=== PATIENT | female | born 1955 | race Caucasian/White ===

== ENCOUNTER 2024-01-31 08:30 | Outpatient (CLI) | payer MEDICARE | END 2024-01-31 08:31 | disposition home or self-care (01) | LOC: CT 08:30 | PROVIDERS: ATTEND Orthopaedic Surgery | DX: M17.11 Unilateral primary osteoarthritis, right knee (principal) ==

== ENCOUNTER 2024-02-10 06:42 | Observation (INO) | payer MEDICARE ==
[2024-02-05 11:14] VITALS: BMI 41.0
[2024-02-10] MEDS ORDERED: Vancomycin (BATCH) 2 GM in Premix 1 BAG IVPB SCH (07:15)
[2024-02-10] MEDS ORDERED: Sodium Chloride 0.9% 100 ML ONE ×2 (08:07→09:35)
[2024-02-10] MEDS ORDERED: Tranexamic Acid 1,000 MG/10 ML VIAL ONE ×2 (08:07→12:05)
[2024-02-10] MEDS ORDERED: Bupivacaine PF 0.5% 30 ML VIAL ONE ×2 (08:09→09:19)
[2024-02-10] MEDS ORDERED: Midazolam HCl 2 mg/2 ml Vial ONE (08:09)
[2024-02-10] MEDS ORDERED: fentaNYL 50 mcg/mL 1 mL Vial ONE (08:09)
[2024-02-10] MEDS ORDERED: Bupivacaine HCl 0.5%/Epinephrine 1:200,000/PF 30 ml Vial ONE (09:00)
[2024-02-10] MEDS ORDERED: Ropivacaine 0.2% 550 ML 550 ML NERVE BLCK SCH (09:30)
[2024-02-10] MEDS ORDERED: Ondansetron PF 4 MG/2 ML Vial IVP PRN ×2 (09:30→11:37)
[2024-02-10] MEDS ORDERED: traMADol HCl 50 MG TAB PO PRN ×2 (09:30)
[2024-02-10] MEDS ORDERED: Zolpidem Tartrate 5 MG TAB PO PRN ×2 (09:30→11:37)
[2024-02-10] MEDS ORDERED: Promethazine HCl 25 MG/ML VIAL IM PRN ×2 (09:30→11:37)
[2024-02-10] MEDS ORDERED: fentaNYL 50 mcg/mL 1 mL Vial SLOW IVP PRN (09:31)
[2024-02-10] MEDS ORDERED: CEFAZOLIN 2 GM VIAL ONE (09:34)
[2024-02-10] MEDS ORDERED: Lidocaine 2% PF 5 ML VIAL ONE (09:36)
[2024-02-10] MEDS ORDERED: PROPOFOL 20 ML ONE ×2 (09:36→09:52)
[2024-02-10] MEDS ORDERED: Dexamethasone 20 MG/5 ML VIAL ONE (10:01)
[2024-02-10] MEDS ORDERED: Ketorolac Tromethamine 30 MG (1 mL) VIAL ONE (10:01)
[2024-02-10] MEDS ORDERED: Ondansetron PF 4 MG/2 ML Vial ONE (10:01)
[2024-02-10] MEDS ORDERED: ePHEDrine Sulfate 50 MG/10 ML VIAL ONE (10:08)
[2024-02-10] MEDS ORDERED: Acetaminophen 325 MG TAB PO PRN (11:37)
[2024-02-10] MEDS ORDERED: Tranexamic Acid 1,000 MG in Sodium Chloride 0.9% 100 ML IVPB SCH (11:45)
[2024-02-10] MEDS: Ketorolac Tromethamine 30 MG (1 mL) VIAL IVP SCH (12:48)
[2024-02-10] MEDS: HYDROcodone/Acetaminophen 5/325 mg Tablet PO PRN (14:48)
[2024-02-10] MEDS: Sodium Chloride 0.9% 1,000 ML IV SCH (14:49)
[2024-02-10] MEDS: CEFAZOLIN 2 GM in Sodium Chloride 0.9% 100 ML IVPB SCH (17:15)
[2024-02-10] MEDS: hydrALAZINE 25 MG TAB PO SCH (21:28)
[2024-02-10] MEDS: Aspirin 81 mg Enteric Coated Tablet PO SCH (21:28)
[2024-02-10] MEDS: Magnesium Oxide 400 MG TAB PO SCH (21:28)
[2024-02-10] MEDS: Vancomycin (BATCH) 2 GM in Premix 1 BAG IVPB SCH (21:29)
[2024-02-11 05:38] LABS: Hematocrit 33.1 % (36.0-47.0); Hemoglobin 10.6 g/dL (12.0-16.0); Mean Corpuscular Hemoglobin 28.6 pg (27.0-31.0); Mean Corpuscular Volume 89.5 fL (78.0-98.0); Mean Platelet Volume 9.7 fL (7.4-10.4); Platelet Count 328 10x3/uL (130-400); RBC Distribution Width 14.1 % (11.5-14.5)
[2024-02-11] MEDS: Verapamil 240 MG SR.TAB PO SCH (08:33)
[2024-02-11] MEDS: Ferrous Gluconate 324 MG TAB PO SCH (08:33)
[2024-02-11] MEDS: Multivitamin W/ Minerals 1 TAB PO SCH (08:33)
[2024-02-11] MEDS: Senokot S 8.6-50 MG TAB PO SCH (08:33)
[2024-02-11] MEDS: Losartan 25 MG TAB PO SCH (08:34)
[2024-02-11] MEDS: Fenofibrate Nanocrystallized 145 MG TAB PO SCH (08:34)
[2024-02-11] MEDS: Furosemide 20 MG TAB PO SCH (08:34)
[2024-02-11] MEDS: Pantoprazole DR 40 MG TAB PO SCH (08:34)
[2024-02-11] MEDS: HYDROcodone/Acetaminophen 5/325 mg Tablet PO PRN (08:40)
[2024-02-11] MEDS ORDERED: Aspirin Chewable 81 MG TAB PO SCH (09:00)
[2024-02-11] MEDS ORDERED: Lactase [Lactaid] 3,000 UNIT Tablet PO SCH (09:00)
[2024-02-11] MEDS: Potassium Chloride 8 MEQ TAB PO SCH (09:30)
[2024-02-11] MEDS: diphenhydrAMINE 25 MG CAP PO PRN (21:26)
[2024-02-12 06:09] LABS: Hematocrit 31.3 % (36.0-47.0); Hemoglobin 9.9 g/dL (12.0-16.0); Mean Corpuscular HGB CONC 31.6 g/dL (32.0-36.0); Mean Corpuscular Hemoglobin 28.4 pg (27.0-31.0); Mean Corpuscular Volume 89.9 fL (78.0-98.0); Platelet Count 278 10x3/uL (130-400); RBC Distribution Width 14.4 % (11.5-14.5); Red Blood Cell (RBC) Count 3.48 mill/uL (4.20-5.40)
[2024-02-12 08:22] VITALS: BP 169/81
[2024-02-12 08:24] VITALS: TEMP 98.1
== END 2024-02-12 11:25 | disposition home or self-care (01) ==
LOC: SDC 06:42 → SJJU 13:33
PROVIDERS: ADMIT Orthopaedic Surgery; ATTEND Orthopaedic Surgery
PROC: 0SRC0JZ Replacement of Right Knee Joint with Synthetic Substitute, Open Approach (ICD-10-PCS; principal; 2024-02-10)
DX: M17.11 Unilateral primary osteoarthritis, right knee (principal); E78.00 Pure hypercholesterolemia, unspecified; I10 Essential (primary) hypertension; Z79.82 Long term (current) use of aspirin; Z79.899 Other long term (current) drug therapy; Z88.2 Allergy status to sulfonamides; Z91.048 Other nonmedicinal substance allergy status; Z90.710 Acquired absence of both cervix and uterus; Z98.890 Other specified postprocedural states
CPT/HCPCS: 27447; 85027 ×2; 97110 ×3; 97116 ×3; 97530 ×2; A4306; C1713; C1776; C1889; J0665; J1100; J1885 ×3; J2001; J2250; J2405; J2704; J2795; J3010; J3370; J3490 ×2; 36415

== ENCOUNTER 2024-09-16 08:43 | Outpatient (CLI) | payer MEDICARE ==
[2024-09-16 10:30] LABS: #Basophils 0.04 10x3/uL (0.0-0.2); %Basophils 0.6 % (0.0-1.0); %Eosinophils 3.7 % (0.0-10.0); %Lymphocytes 25.6 % (21.0-51.0); %Monocytes 6.9 % (0.0-10.0); %Neutrophils 62.9 % (42.0-75.0); Hematocrit 40.7 % (36.0-47.0); Mean Corpuscular HGB CONC 31.9 g/dL (32.0-36.0); Mean Corpuscular Hemoglobin 27.8 pg (27.0-31.0); Mean Platelet Volume 9.9 fL (7.4-10.4); Platelet Count 411 10x3/uL (130-400); RBC Distribution Width 13.4 % (11.5-14.5); Red Blood Cell (RBC) Count 4.68 mill/uL (4.20-5.40)
[2024-09-16 10:50] LABS: Anion Gap 15 mmol/L (10-20); BUN (Urea Nitrogen) 24 mg/dL (9.8-20.1); Calc. Creatinine Clearance 0 mL/min (70-130); Calcium 10.2 mg/dL (7.8-10.44); Carbon Dioxide 25 mmol/L (23-31); Chloride 104 mmol/L (98-107); Estimated GFR 61; Glucose 101 mg/dL (80-115); Potassium 4.5 mmol/L (3.5-5.1); Sodium 139 mmol/L (136-145)
[2024-09-16 10:59] LABS: Bacteria/HPF None Seen HPF (None Seen); Bilirubin Negative (Negative); Blood, Urine Negative (Negative); Clarity Clear (Clear); Glucose, Urine (Dipstick) Normal (Negative); Ketone, Urine Negative (Negative); Leukocyte Negative Leu/uL (Negative); Nitrite Negative (Negative); Protein, Urine (Dipstick) Negative (Neg-Trace); RBC/HPF 0-3 HPF (0-3); Specific Gravity, Urine 1.009 (1.002-1.036); Squamous Epithelial None Seen HPF (0-3); Urobilinogen Normal mg/dL (Less than 2); WBC/HPF 0-3 HPF (0-3)
[2024-09-16 11:20] LABS: Prothrombin Time 13.1 sec (12.0-14.7)
== END 2024-09-16 08:44 | disposition home or self-care (01) ==
LOC: LABBT 08:43
PROVIDERS: ATTEND Orthopaedic Surgery
DX: Z01.818 Encounter for other preprocedural examination (principal); M17.12 Unilateral primary osteoarthritis, left knee
CPT/HCPCS: 71046; 80048; 81001; 85025; 85610; 87081; 93005; 93010